=== PATIENT | female | born 1965 | race Caucasian/White ===

== ENCOUNTER 2018-08-08 18:29 | Emergency (ER) | payer OTHER, SELFPAY ==
[2018-08-08 18:46] VITALS: BP 121/77; PULSE 81; RESP 14; TEMP 36.7; O2SAT 99; BMI 35.4
--- NOTE | 2018-08-08 19:22 | DI.RAD.S_ITS ---
PROCEDURE: XR ANKLE LT MIN 3V INDICATIONS: lateral malleolus tenderness and swelling post inversion TECHNIQUE: 3 views of the ankle were acquired. [facility] 2[facility], 08/08/2018, 19:25. FINDINGS: Bones: Minimally displaced distal fibular fracture. Soft tissues: Lateral malleolar edema. Achilles tendon appears normal. IMPRESSION: Newly displaced distal fibular fracture with surrounding edema. Dictated by: Zaynab Bassett M.D. on 08/08/2018 at 19:54 Approved by: Zaynab Bassett M.D. on 08/08/2018 at 19:55
--- NOTE | 2018-08-08 19:23 | DI.RAD.S_ITS ---
PROCEDURE: XR TIBIA FIBULA RT 2V INDICATIONS: Left lateral proximal fibula tenderness w/ ankle injury TECHNIQUE: 2 views of the tibia and fibula were acquired. COMPARISON: [facility], [facility], XR ANKLE LT MIN 3V, 08/08/2018, 19:25[facility] 14:45. FINDINGS: Bones: There is a minimally displaced distal fibular fracture. Soft tissues: No suspicious soft tissue calcifications or masses. IMPRESSION: Minimally displaced distal fibular fracture. Dictated by: Zaynab Bassett M.D. on 08/08/2018 at 19:53 Approved by: Zaynab Bassett M.D. on 08/08/2018 at 19:54
[2018-08-08] MEDS: HYDROCODONE/ACET 5/325 TABLET 1 TAB PO (19:37)
--- NOTE | 2018-08-08 19:37 | ED.LOWEXIN ---
HPI - Extremity Injury (Lower) <ALESSANDRO Vo - Last Filed: 08/08/18 22:31> General Chief Complaint: Extremity Injury, Lower Stated Complaint: left side foot/ankle injury Time Seen by Provider: 08/08/18 18:56 Source: patient and family Limitations: no limitations History of Present Illness HPI Narrative: 53-year-old female with history of arthritis, and a nonspecific autoimmune disorder, complains of left lateral ankle pain that radiates to the lateral fibula area. After rolling her ankle in the barn this morning. It is a dull constant pain that is worse with movement and can reach an intensity of 9/10 at times with movement. She has used ice, elevation, Jacinto wrap, and ibuprofen with some pain relief. Is unable to bear weight on the ankle. Denies numbness, tingling, heel pain, toe pain, shortness of breath, chest pain, nausea, vomiting, or fever. Related Data Home Medications Medication Instructions Recorded Confirmed rizatriptan [Maxalt] PRN #0 04/23/16 Previous Rx's Medication Instructions Recorded hydrocodone-acetaminophen 1 tab PO Q4-6H PRN #10 tab 08/08/18 Allergies Allergy/AdvReac Type Severity Reaction Status Date / Time No Known Drug Allergies Allergy Verified 08/08/18 18:46 Review of Systems <ALESSANDRO Vo - Last Filed: 08/08/18 22:31> Review of Systems REVIEW OF SYSTEMS: GENERAL: Denies fever or chills. HENT: No head trauma, hearing loss or sore throat. EYES: No loss of vision, double vision, eye pain, or irritation. CARDIOVASCULAR: No chest pain or syncope. RESPIRATORY: No shortness of breath or cough. GASTROINTESTINAL: No nausea, vomiting, diarrhea, or constipation. GENITOURINARY: No flank pain or dysuria. MUSCULOSKELETAL: See HPI, complaints of swelling and pain ankle. INTEGUMENTARY: No rash, lesions, or pruritus. NEURO: No numbness, tingling, memory loss, or confusion. PSYCH: No behavior or mood changes. PFSH <ALESSANDRO Vo - Last Filed: 08/08/18 22:31> Medical History Arthritis (Acute) Social History (Updated 08/08/18 @ 22:27 by ALESSANDRO Vo) Smoking Status: Never smoker Social History Smoking Status: Never smoker Exam <ALESSANDRO Vo - Last Filed: 08/08/18 22:31> Initial Vital Signs Initial Vital Signs: Vital Signs Temperature 98.1 F 08/08/18 18:46 Pulse Rate 81 08/08/18 18:46 Respiratory Rate 14 08/08/18 18:46 Blood Pressure 121/77 08/08/18 18:46 Pulse Oximetry 99 08/08/18 18:46 PHYSICAL EXAMINATION: GENERAL: Well groomed, alert, and cooperative Answers questions promptly and appropriately. Vital signs noted. HENT: Normocephalic, atraumatic. Ear canals patent. Oral mucosa is pink and moist. EYES: PERRLA, EOMIs, conjunctiva pink, sclera white, no periorbital swelling. NECK: Full range of motion. CHEST: Normal to inspection and without deformities. CARDIOVASCULAR: S1 and S2 sounds normal. Regular rate and rhythm, no murmurs, clicks, or bruits. No pedal edema. RESPIRATORY: Normal respiratory rate, trachea midline, airway patent. No stridor, nasal flaring or accessory muscle use. Lungs are clear in all lam without wheeze, rhonchi, or crackles. MUSCULOSKELETAL: Diffuse swelling and ecchymosis to the lateral malleolus. Pain with palpation to lateral malleolus, lateral distal fibula, and lateral proximal fibula. No erythema or increased warmth. Limited range of motion due to pain. Able to partially weight bear. Equal tone and mass bilaterally. EXTREMITIES: CMS intact. Full range of motion and 5/5 strength to upper and lower extremities SKIN: Warm, dry, soft, appropriate color for ethnicity. No lesions, rashes, or wounds. NEURO: Alert and Oriented X 3. Good coordination. No ataxia, or sensory deficits, or cognitive issues. PSYCH: Appropriate affect and mood. <Mykel Ma DO - Last Filed: 08/08/18 23:08> Initial Vital Signs Initial Vital Signs: Vital Signs Temperature 98.1 F 08/08/18 18:46 Pulse Rate 81 08/08/18 18:46 Respiratory Rate 14 08/08/18 18:46 Blood Pressure 121/77 08/08/18 18:46 Pulse Oximetry 99 08/08/18 18:46 Course <ALESSANDRO Vo - Last Filed: 08/08/18 22:31> Orders Ordered: ED Orders 08/08/18 19:22 XR ankle LT min 3V Stat 08/08/18 19:23 XR tibia fibula LT 2V Stat Discontinued Medications Hydrocodone Bitart/Acetaminophen (Sheldon 5/325) 1 tab PO NOW ONE Stop: 08/08/18 19:25 Last Admin: 08/08/18 19:37 Dose: 1 tab Hydrocodone Bitart/Acetaminophen (Vicodin Prepack) 1 bottle MISC SEEINSTR ONE Stop: 08/08/18 20:12 Last Admin: 08/08/18 20:21 Dose: 1 bottle Consultations Consultation #1: Patient was staffed with whom agrees with plan of care. Vital Signs - 8 hr 08/08/18 18:46 08/08/18 20:40 Temperature 98.1 F Pulse Rate 81 82 Respiratory Rate 14 16 Blood Pressure 121/77 136/78 Pulse Oximetry 99 99 <Mykel Ma DO - Last Filed: 08/08/18 23:08> Orders Ordered: ED Orders 08/08/18 19:22 XR ankle LT min 3V Stat 08/08/18 19:23 XR tibia fibula LT 2V Stat Discontinued Medications Hydrocodone Bitart/Acetaminophen (Sheldon 5/325) 1 tab PO NOW ONE Stop: 08/08/18 19:25 Last Admin: 08/08/18 19:37 Dose: 1 tab Hydrocodone Bitart/Acetaminophen (Vicodin Prepack) 1 bottle MISC SEEINSTR ONE Stop: 08/08/18 20:12 Last Admin: 08/08/18 20:21 Dose: 1 bottle Vital Signs - 8 hr 08/08/18 18:46 08/08/18 20:40 Temperature 98.1 F Pulse Rate 81 82 Respiratory Rate 14 16 Blood Pressure 121/77 136/78 Pulse Oximetry 99 99 MDM - Extremity Injury (Lower) <ALESSANDRO Vo - Last Filed: 08/08/18 22:31> Medical Records Attestation: I reviewed the patient's medical records. Lab Data Attestation: I reviewed the patient's lab results. Imaging Data Left Ankle XR: Radiologist's impression: [address] [address] XRay Report Signed Patient: Tammy Oliveira [facility]#: [id number] : 1965Acct:[id number] Age/Sex: 53 / FDate of Service: 08/08/18 Loc: ED Accession Number: [id number] Procedure: XR ankle LT min 3V Ordering Provider: Ann Worthington PROCEDURE: XR ANKLE LT MIN 3V INDICATIONS: lateral malleolus tenderness and swelling post inversion TECHNIQUE: 3 views of the ankle were acquired. COMPARISON: [facility], CR, TIB/FIB 2V LEFT, 04/23/2016, 14:45. [facility], CR, XR TIBIA FIBULA LT 2V, 08/08/2018, 19:25. FINDINGS: Bones: Minimally displaced distal fibular fracture. Soft tissues: Lateral malleolar edema. Achilles tendon appears normal. IMPRESSION: Newly displaced distal fibular fracture with surrounding edema. Dictated by: Zaynab Bassett M.D. on 08/08/2018 at 19:54 Approved by: Zaynab Bassett M.D. on 08/08/2018 at 19:55 Left tib/fib: Radiologist's impression: [address] [address] XRay Report Signed Patient: Tammy Oliveira MMR#: [id number] : 1965Acct:[id number] Age/Sex: 53 / FDate of Service: 08/08/18 Loc: ED Accession Number: [id number] Procedure: XR tibia fibula LT 2V Ordering Provider: Ann Worthington PROCEDURE: XR TIBIA FIBULA RT 2V INDICATIONS: Left lateral proximal fibula tenderness w/ ankle injury TECHNIQUE: 2 views of the tibia and fibula were acquired. COMPARISON: [facility], CR, XR ANKLE LT MIN 3V, 08/08/2018, 19:25. [facility], CR, TIB/FIB 2V LEFT, 04/23/2016, 14:45. FINDINGS: Bones: There is a minimally displaced distal fibular fracture. Soft tissues: No suspicious soft tissue calcifications or masses. IMPRESSION: Minimally displaced distal fibular fracture. Dictated by: Zaynab Bassett M.D. on 08/08/2018 at 19:53 Approved by: Zaynab Bassett M.D. on 08/08/2018 at 19:54 MDM Narrative Medical decision making narrative: Fibula fracture as indicated by x-ray, patient placed in a boot with weight-bearing lab due to fibula being on weight bearing bone. Crutches given for comfort as requested per patient. Instructed to follow up with Orthopedic, return precautions discussed. Discharge Plan Departure Patient Disposition: Home Clinical Impression: Fibula fracture Qualifiers: Encounter type: initial encounter Fibula location: distal Fracture type: closed Fracture morphology: unspecified fracture morphology Laterality: left Qualified Code(s): S82.832A - Other fracture of upper and lower end of left fibula, initial encounter for closed fracture Discharge Date/Time: 08/08/18 20:41 Interventions: ED Discharge Assessment Last Done: 08/08/18 20:40 Instructions: DI for Ankle Fracture Activity Restrictions/Additional Instructions: Thank you for entrusting me with your care today. As discussed, he will have a fibula fracture. We placed a boot on your foot, please leave the boot on place at all times. You may weight bear on your leg and use crutches as needed or for stability. I have prescribed Vicodin for pain, do not drive with this medication as it can make you drowsy, and please be aware this medication may make you constipated. Follow up with the orthopedic in the next week. Return for chest pain, shortness of breath, dizziness, severe increasing pain. Prescriptions: New hydrocodone-acetaminophen 5-325 mg tablet 1 tab PO Q4-6H PRN (Reason: pain, fibula fracture) Qty: 10 RF: 0 No Action rizatriptan [Maxalt] 10 MG tablet PRNQty: 0 RF: 0 <Mykel Ma DO - Last Filed: 08/08/18 23:08> [facility] ED Attending Romeo Attestation: I was available for consultation during this patient's emergency department encounter
[2018-08-08] MEDS: HYDROCODONE/ACET 5/325 PREPACK 1 BOTTLE MISC (20:21)
[2018-08-08 20:40] VITALS: BP 136/78; PULSE 82; RESP 16; O2SAT 99
== END 2018-08-08 20:41 | disposition home or self-care (01) ==
PROVIDERS: Emergency Provider Nurse Practitioner
DX: S82.832A Other fracture of upper and lower end of left fibula, initial encounter for closed fracture (principal)
CPT/HCPCS: 29580; 73590; 73610; 99283

== ENCOUNTER → 2019-12-15 16:26 | Outpatient (CLI) | payer OTHER, SELFPAY ==
[2019-12-15 17:07] LABS: COVID19 -Nasal RAPID Negative (Negative)
== END ==
PROVIDERS: Visit Provider Physician Assistant
DX: Z11.59 Encounter for screening for other viral diseases (principal)
CPT/HCPCS: 87635